=== PATIENT | male | born 1975 | race African-American/Black ===

== ENCOUNTER 2017-09-16 08:55 | Inpatient (IN) ==
[2017-09-16] MEDS ORDERED: SODIUM CHLORIDE 0.9% 3,000 ML IV ONE (09:33)
[2017-09-16] MEDS ORDERED: metroNIDAZOLE INJ 500 MG in PREMIX 1 EACH IV STA (09:33)
[2017-09-16 10:04] LABS: Basophils % 0.3 % (0.0-0.8); Hematocrit 40.6 VOL% (42.0-52.0); Immature Granulocytes % 0.4 %; Immature Granulocytes Absolute 0.06 #; Lymphocytes # 1.5 10*3/uL (1.4-4.0); Lymphocytes % 9.4 % (21.2-54.2); Mean Corpuscular HGB Conc 34.5 GM/DL (32-36); Mean Corpuscular Hemoglobin 28 PG (27-34); Mean Corpuscular Volume 80.2 FL (87-102); Mean Platelet Volume 9.7 FL (9.6-12.0); Monocytes # 0.9 10*3/uL (0.11-0.8); Monocytes % 5.8 % (1.7-12.7); Neutrophils # 13.3 10*3/uL (1.4-7.4); Neutrophils % 84.1 % (38.7-73.9); Platelet Count 206 T/CUMM (130-400); Red Blood Count 5.06 MC/CUMM (3.8-5.5); Red Cell Distribution Width 15.4 % (9.3-17.3); White Blood Count 15.8 T/CUMM (4-12)
[2017-09-16] MEDS ORDERED: PIPERACILLIN/TAZOBACTAM 3,375 MG VIAL IV ONE (10:08)
[2017-09-16] MEDS ORDERED: metroNIDAZOLE 500 MG/100 ML PREMIX IV ONE (10:08)
[2017-09-16 10:32] LABS: Albumin 3.7 G/DL (3.4-5.0); Bilirubin,Total 1.4 MG/DL (0.2-1.0); Potassium 3.5 MMOL/L (3.5-5.1); Total Protein 7.9 G/DL (6.4-8.3)
[2017-09-16 10:35] LABS: Lactic Acid 2.5 MMOL/L (0.4-2.0)
[2017-09-16 11:16] LABS: Apearance,Urine CLEAR (Clear); Bilirubin,Urine Negative (Negative); Blood, Urine Small mg/dL (Negative); Glucose,Urine (UA) Negative (Negative); Ketones,Urine 5 mg/dL (Negative); Mucus,Urine Occasional /LPF (Occasional); Nitrite,Urine Negative (Negative); Protein,Urine Negative; RBC,Urine <1 /HPF (0-4); Squamous Epithelial Cell,Urine Occasional /HPF (0-10); Urine Color Yellow (Yellow); Urine Specific Gravity 1.029 (1.001-1.035); Urine Urobilinogen < 2.0 EU/DL (0.2-1.0); WBC,Urine 2 /HPF (0-6)
[2017-09-16] MEDS: PIPERACILLIN/TAZOBACTAM 3,375 MG in SODIUM CHLORIDE 0.9% 100 ML IV SCH ×2 (12:02→21:03)
[2017-09-16] MEDS ORDERED: MORPHINE 2 MG/1 ML SYRINGE ONE (13:14)
[2017-09-16] MEDS ORDERED: ONDANSETRON 4 MG/2 ML VIAL ONE (13:14)
[2017-09-16] MEDS ORDERED: MORPHINE 2 MG/1 ML SYRINGE IV STA (13:15)
[2017-09-16] MEDS ORDERED: ONDANSETRON 4 MG/2 ML VIAL IV STA (13:15)
[2017-09-16] MEDS ORDERED: POTASSIUM CHLORIDE 20 MEQ/15 ML UDCUP PER TUBE PRN (13:43)
[2017-09-16] MEDS ORDERED: ONDANSETRON 4 MG/2 ML VIAL IV PRN (13:43)
[2017-09-16] MEDS ORDERED: MAGNESIUM SULF RIDER 2 GM in PREMIX 1 EACH IV PRN (13:43)
[2017-09-16] MEDS ORDERED: DOCUSATE SODIUM 100 MG CAPSULE PO PRN (13:43)
[2017-09-16] MEDS ORDERED: LACTULOSE 20 GM/30 ML UDCUP PO PRN (13:43)
[2017-09-16] MEDS ORDERED: MAGNESIUM SULF RIDER 4 GM in PREMIX 1 EACH IV PRN (13:43)
[2017-09-16] MEDS ORDERED: MORPHINE 2 MG/1 ML SYRINGE IV PRN (13:43)
[2017-09-16] MEDS: metroNIDAZOLE INJ 500 MG in PREMIX 1 EACH IV SCH ×3 (15:02→22:46)
[2017-09-16] MEDS: ACETAMINOPHEN 325 MG TABLET PO PRN (15:22)
[2017-09-16] MEDS: PANTOPRAZOLE 40 MG TABLET PO SCH (15:24)
[2017-09-16] MEDS: SODIUM CHLORIDE 0.9% 1,000 ML IV SCH (17:06)
[2017-09-16] MEDS: ENOXAPARIN 40 MG/0.4 ML SYRINGE SUBCUT SCH (18:45)
[2017-09-17] MEDS: metroNIDAZOLE INJ 500 MG in PREMIX 1 EACH IV SCH ×4 (01:07→18:43)
[2017-09-17] MEDS: SODIUM CHLORIDE 0.9% 1,000 ML IV SCH ×4 (01:10→18:43)
[2017-09-17] MEDS: CIPROFLOXACIN INJ 400 MG in PREMIX 1 EACH IV SCH ×2 (02:23→14:15)
[2017-09-17] MEDS: PIPERACILLIN/TAZOBACTAM 3,375 MG in SODIUM CHLORIDE 0.9% 100 ML IV SCH ×3 (04:28→21:13)
[2017-09-17] MEDS: ACETAMINOPHEN 325 MG TABLET PO PRN ×2 (04:51→11:34)
[2017-09-17 05:09] LABS: Basophils % 0.2 % (0.0-0.8); Eosinophils % 0.2 % (0.00-10.9); Hematocrit 34.4 VOL% (42.0-52.0); Hemoglobin 11.7 GM/DL (14.0-18.0); Immature Granulocytes % 0.4 %; Immature Granulocytes Absolute 0.03 #; Lymphocytes # 1.7 10*3/uL (1.4-4.0); Lymphocytes % 20.1 % (21.2-54.2); Mean Corpuscular Hemoglobin 28 PG (27-34); Mean Corpuscular Volume 81.1 FL (87-102); Mean Platelet Volume 9.7 FL (9.6-12.0); Monocytes # 0.9 10*3/uL (0.11-0.8); Monocytes % 11.2 % (1.7-12.7); Neutrophils # 5.7 10*3/uL (1.4-7.4); Neutrophils % 67.9 % (38.7-73.9); Platelet Count 193 T/CUMM (130-400); Red Blood Count 4.24 MC/CUMM (3.8-5.5); Red Cell Distribution Width 15.4 % (9.3-17.3); White Blood Count 8.4 T/CUMM (4-12)
[2017-09-17 05:46] LABS: Osmolality,Calculated 277.4 MOS/KG (273-304); Potassium 3.3 MMOL/L (3.5-5.1)
[2017-09-17] MEDS: POTASSIUM CHLORIDE 20 MEQ TABLET PO PRN (06:37)
[2017-09-17] MEDS: PANTOPRAZOLE 40 MG TABLET PO SCH (09:38)
[2017-09-17] MEDS ORDERED: BISACODYL 5 MG TABLET PO ONE (13:00)
[2017-09-17] MEDS ORDERED: POLYETHYLENE GLYCOL POWDER 255 GM BOTTLE PO ONE (13:00)
[2017-09-17] MEDS: ENOXAPARIN 40 MG/0.4 ML SYRINGE SUBCUT SCH (18:44)
[2017-09-17] MEDS ORDERED: MAGNESIUM CITRATE 300 ML BOTTLE PO ONE (21:00)
[2017-09-18] MEDS: SODIUM CHLORIDE 0.9% 1,000 ML IV SCH ×4 (01:45→23:00)
[2017-09-18] MEDS: metroNIDAZOLE INJ 500 MG in PREMIX 1 EACH IV SCH ×4 (02:20→22:57)
[2017-09-18] MEDS: CIPROFLOXACIN INJ 400 MG in PREMIX 1 EACH IV SCH ×2 (03:27→14:02)
[2017-09-18] MEDS: PIPERACILLIN/TAZOBACTAM 3,375 MG in SODIUM CHLORIDE 0.9% 100 ML IV SCH ×3 (04:32→22:57)
[2017-09-18 05:31] LABS: Basophils % 0.2 % (0.0-0.8); Eosinophils # 0.2 10*3/uL (0.0-0.87); Eosinophils % 2.7 % (0.00-10.9); Hemoglobin 11.6 GM/DL (14.0-18.0); Immature Granulocytes % 0.4 %; Immature Granulocytes Absolute 0.02 #; Lymphocytes % 36.1 % (21.2-54.2); Mean Corpuscular HGB Conc 33.1 GM/DL (32-36); Mean Corpuscular Hemoglobin 27 PG (27-34); Mean Corpuscular Volume 82.2 FL (87-102); Mean Platelet Volume 10.2 FL (9.6-12.0); Monocytes % 17.8 % (1.7-12.7); Neutrophils # 2.4 10*3/uL (1.4-7.4); Neutrophils % 42.8 % (38.7-73.9); Platelet Count 202 T/CUMM (130-400); Red Blood Count 4.26 MC/CUMM (3.8-5.5); Red Cell Distribution Width 15.4 % (9.3-17.3); White Blood Count 5.5 T/CUMM (4-12)
[2017-09-18 05:53] LABS: Eosinophils 4 % (0-10); Giant Platelets Few; Hypochromasia 1+; Lymphocytes 35 % (20-55); Platelet Estimate Adequate; Segmented Neutrophils 44 % (50-85); Total Cells Counted 100
[2017-09-18 05:54] LABS: Ovalocytes Slight
[2017-09-18 05:56] LABS: Potassium 3.7 MMOL/L (3.5-5.1)
[2017-09-18] MEDS: PANTOPRAZOLE 40 MG TABLET PO SCH (08:31)
[2017-09-18] MEDS ORDERED: PROPOFOL 200 MG/20 ML VIAL IV ONE (11:06)
[2017-09-18] MEDS ORDERED: LIDOCAINE 1% 5 ML VIAL ONE (11:06)
[2017-09-18] MEDS: ENOXAPARIN 40 MG/0.4 ML SYRINGE SUBCUT SCH ×2 (16:07→18:32)
[2017-09-19] MEDS: CIPROFLOXACIN INJ 400 MG in PREMIX 1 EACH IV SCH ×2 (03:01→14:03)
[2017-09-19] MEDS: metroNIDAZOLE INJ 500 MG in PREMIX 1 EACH IV SCH ×3 (03:01→14:02)
[2017-09-19 06:08] LABS: Basophils % 0.2 % (0.0-0.8); Eosinophils # 0.1 10*3/uL (0.0-0.87); Eosinophils % 2.4 % (0.00-10.9); Hemoglobin 11.3 GM/DL (14.0-18.0); Immature Granulocytes % 0.2 %; Immature Granulocytes Absolute 0.01 #; Lymphocytes # 1.8 10*3/uL (1.4-4.0); Lymphocytes % 33.3 % (21.2-54.2); Mean Corpuscular HGB Conc 33.2 GM/DL (32-36); Mean Corpuscular Hemoglobin 27 PG (27-34); Mean Corpuscular Volume 81.3 FL (87-102); Monocytes # 0.6 10*3/uL (0.11-0.8); Monocytes % 10.2 % (1.7-12.7); Neutrophils # 2.9 10*3/uL (1.4-7.4); Neutrophils % 53.7 % (38.7-73.9); Platelet Count 226 T/CUMM (130-400); Red Blood Count 4.18 MC/CUMM (3.8-5.5); White Blood Count 5.4 T/CUMM (4-12)
[2017-09-19] MEDS: PIPERACILLIN/TAZOBACTAM 3,375 MG in SODIUM CHLORIDE 0.9% 100 ML IV SCH ×2 (06:12→14:02)
[2017-09-19] MEDS: SODIUM CHLORIDE 0.9% 1,000 ML IV SCH ×2 (06:13→14:46)
[2017-09-19 06:38] LABS: Risk Ratio 5.39; VLDL CHOLESTEROL 16.6 MG/DL
[2017-09-19 06:39] LABS: Calcium 8.1 MG/DL (8.5-10.1); Osmolality,Calculated 280.1 MOS/KG (273-304); Potassium 3.5 MMOL/L (3.5-5.1)
[2017-09-19 06:43] LABS: Free T4 (Free Thyroxine) 1.49 NG/DL (0.76-1.46); Thyroid Stimulating Hormone 0.807 uIU/ml (0.358-3.74)
[2017-09-19] MEDS: PANTOPRAZOLE 40 MG TABLET PO SCH (08:46)
[2017-09-19] MEDS: POTASSIUM CHLORIDE 20 MEQ TABLET PO PRN (08:46)
[2017-09-19 16:01] VITALS: BP 160/91
== END 2017-09-19 18:37 | disposition home or self-care (01) | DRG 872 ==
LOC: N.ED 08:55 → N.EDINP 10:31 → SUATTDRO 10:31 → N.TELES 13:43
PROVIDERS: ADMIT Internal Medicine; ATTEND Internal Medicine
PROC: COLONBX (2017-09-18 09:35)